=== PATIENT | female | born 1995 | race Caucasian/White ===

== ENCOUNTER 2022-03-31 02:44 | Emergency (ER) | payer BC ==
[2022-03-31] MEDS ORDERED: Sodium Chloride 0.9% 10 ML Syringe FLUSH PRN (03:06)
[2022-03-31] MEDS ORDERED: Morphine 2 MG/ML SYRINGE IVPUSH ONE (03:06)
[2022-03-31] MEDS ORDERED: Ondansetron 4 MG/2 ML SDV IVPUSH ONE (03:06)
[2022-03-31] MEDS ORDERED: Tranexamic Acid 1,000 MG in Sodium Chloride 0.9% 50 ML IV ONE (03:06)
[2022-03-31 03:25] LABS: ESTIMATED GFR 123 mL/min (>60)
[2022-03-31] MEDS ORDERED: Ketorolac 30 MG/ML SDV IVPUSH STA (03:34)
[2022-03-31] MEDS ORDERED: Sodium Chloride 0.9% 1,000 ML IV SCH (03:45)
== END 2022-03-31 05:25 | disposition home or self-care (01) ==
LOC: FB.ED 02:44
DX: O03.9 Complete or unspecified spontaneous abortion without complication (principal); D64.9 Anemia, unspecified
CPT/HCPCS: 36415; 80053; 85025; 85610; 85730; 96361; 96365; 96375; 99284; J1885; J2405; J3490; J7030

== ENCOUNTER 2022-05-22 10:36 | Emergency (ER) | payer BC | END 2022-05-22 11:44 | disposition home or self-care (01) | LOC: FB.ED 10:36 | DX: N93.8 Other specified abnormal uterine and vaginal bleeding (principal); Z88.1 Allergy status to other antibiotic agents | CPT/HCPCS: 36415; 81025; 85018; 99284 ==